=== PATIENT | female | born 1955 | race Caucasian/White ===

== ENCOUNTER 2019-07-09 17:13 | Inpatient (IN) | payer MEDICARE, OTHER ==
[~2019-07-09] VITALS: Ht 167.6 cm; Wt 135.7 kg
[2019-07-09] MEDS ORDERED: SODIUM CHLORIDE 0.9% 1,000 ML IVB ONE (17:35)
[2019-07-09] MEDS ORDERED: ONDANSETRON HCL 4 MG/2 ML VIAL IV ONE (17:45)
[2019-07-09 18:40] LABS: Basophils # (auto) 0 10 ^3/uL (0-0.2); Eosinophils # (auto) 0.1 10 ^3/uL (0-0.8); Hemoglobin 14.4 g/dL (12.2-16.2); Mean Corpuscular Hgb Conc. 32.4 g/dL (32.0-36.0); Monocytes # (auto) 0.7 10 ^3/uL (0-1.3)
[2019-07-09 18:41] LABS: Basophils % (auto) 0.4 % (0.0-2.0); Hematocrit 44.6 % (36.0-46.0); Lymphocytes # (auto) 0.6 10 ^3/uL (0.4-5.4); Lymphocytes % (auto) 5.4 % (10.0-50.0); Mean Corpuscular Hemoglobin 26.8 pg (28.0-32.0); Mean Corpuscular Volume 82.6 fL (80.0-100.0); Monocytes % (auto) 6.7 % (0.0-12.0); Neutrophils # (auto) 9.4 10 ^3/uL (1.6-8.6); Neutrophils % (auto) 86.5 % (37.0-80.0); Nucleated Red Blood Cells % 0.1 %; Platelet Count (auto) 137 10^3/uL (140-450); Red Cell Distribution Width 20.7 % (11.8-14.3); White Blood Cell 10.9 10^3/uL (4.4-10.8)
[2019-07-09 18:56] LABS: INR 1.03 (0.9-1.15); Partial Thromboplastin Time 29.1 sec (23.64-32.05)
[2019-07-09] MEDS ORDERED: metroNIDAZOLE 500MG/100ML 100 ML IV ONE (19:00)
[2019-07-09] MEDS ORDERED: PANTOPRAZOLE 40 MG/10 ML VIAL INJ IV ONE (19:00)
[2019-07-09] MEDS ORDERED: MORPHINE SULF INJ 2 MG/ML SYRINGE 1ML IV ONE (19:00)
[2019-07-09 19:04] LABS: Albumin 3.5 g/dL (3.4-5.0); BUN/Creatinine Ratio 21.6; Calcium 9.3 mg/dL (8.5-10.1); Magnesium 2.1 mg/dL (1.6-2.6); Potassium 4.2 mmol/L (3.5-5.1)
[2019-07-09 19:06] LABS: Bilirubin, Total 0.4 mg/dL (0.2-1.0); Total Protein 7.4 g/dL (6.4-8.2)
[2019-07-09] MEDS ORDERED: DEXTROSE (50%) 50ML SYRG IV PRN (20:45)
[2019-07-09] MEDS ORDERED: hydrALAZINE HCL 25 MG TAB PO PRN (20:45)
[2019-07-09] MEDS: ONDANSETRON HCL 4 MG/2 ML VIAL IV PRN (21:44)
[2019-07-09] MEDS: SODIUM CHLORIDE 0.9% 1,000 ML IV SCH (21:45)
[2019-07-09 22:07] VITALS: BP 129/61
[2019-07-09] MEDS: TOLTERODINE TARTRATE 1 MG TAB PO SCH (22:19)
--- NOTE | 2019-07-09 23:25 | NUR ---
Telemetry admit from ER JOSEOMAR admitted to Telemetry unit. Patient oriented to AMADOR DOTY RN primary RN, unit, room, bed, and unit policies regarding patient care and visiting hours. Patient now on continuous telemetry monitoring, tele box #74 and telemetry reading on arrival to unit is sinus bradycardia at 56. Patient placed on bedside oxygen, weighed by bed scale and encouraged to call if they need something. All questions and concerns addressed, patient verbalized understanding. Note: Wound pictures taken
[2019-07-09 23:30] VITALS: BP 157/89
[2019-07-10] MEDS: ACCU-CHEK COMFORT CURVE STRIP VI SCH ×4 (00:15→12:29)
[2019-07-10] MEDS: metroNIDAZOLE 500MG/100ML 100 ML IV SCH ×4 (00:15→18:38)
--- NOTE | 2019-07-10 01:27 | NUR ---
Patient experiencing bleeding of bright red blood with clots from rectum and nausea/dry heaving. Patient assisted into chair and full linen change performed. Patient cleansed and placed into clean gown. Transferred back into bed; patient tolerated well. Requesting medication for 7/10 abdominal pain and nausea. Will medicate according to orders.
[2019-07-10] MEDS: MORPHINE SULFATE 4 MG/ML SYR/VIAL IV PRN ×2 (01:37→06:04)
[2019-07-10] MEDS: ONDANSETRON HCL 4 MG/2 ML VIAL IV PRN ×3 (01:38→15:01)
[2019-07-10] MEDS ORDERED: OMEP20TA PO (01:50)
[2019-07-10] MEDS: InsuLIN REG 1unit/0.01ml Soln (100units/ml) SC SCH ×4 (04:00→12:00)
[2019-07-10 05:00] VITALS: BP 134/60
[2019-07-10 05:22] LABS: Basophils # (auto) 0 10 ^3/uL (0-0.2); Lymphocytes # (auto) 0.6 10 ^3/uL (0.4-5.4)
[2019-07-10 05:24] LABS: Basophils % (auto) 0.5 % (0.0-2.0); Eosinophils # (auto) 0.1 10 ^3/uL (0-0.8); Eosinophils % (auto) 1.3 % (0.0-7.0); Hematocrit 38.2 % (36.0-46.0); Hemoglobin 12.6 g/dL (12.2-16.2); Lymphocytes % (auto) 5.7 % (10.0-50.0); Mean Corpuscular Hgb Conc. 32.9 g/dL (32.0-36.0); Mean Corpuscular Volume 82.3 fL (80.0-100.0); Monocytes # (auto) 0.7 10 ^3/uL (0-1.3); Monocytes % (auto) 7.1 % (0.0-12.0); Neutrophils # (auto) 8.4 10 ^3/uL (1.6-8.6); Neutrophils % (auto) 85.4 % (37.0-80.0); Platelet Count (auto) 116 10^3/uL (140-450); Red Blood Cells 4.65 10^6/uL (4.0-5.20); White Blood Cell 9.9 10^3/uL (4.4-10.8)
[2019-07-10 05:34] LABS: Calcium 8.3 mg/dL (8.5-10.1); Potassium 3.6 mmol/L (3.5-5.1)
[2019-07-10 05:37] LABS: BUN/Creatinine Ratio 23.9
[2019-07-10 05:43] LABS: Red Cell Distribution Width 20.3 % (11.8-14.3)
[2019-07-10] MEDS: SODIUM CHLORIDE 0.9% 1,000 ML IV SCH ×2 (05:55→16:39)
--- NOTE | 2019-07-10 06:04 | NUR ---
PAIN Patient complains of pain to left lower abdomen, radiating to back. Medicated according to orders and heat pack provided. Will continue to monitor for improvement.
[2019-07-10] MEDS ORDERED: LEVOTHYROXINE SODIUM 25 MCG TAB PO SCH (07:00)
--- NOTE | 2019-07-10 08:34 | NUR ---
pt assessed for prn hhn tx. pt is on room air, spo2 97%, hr51, rr20. no s/s of respiratory distress noted. hhn tx not indicated. will continue to monitor.
[2019-07-10 09:00] VITALS: BP 123/65
[2019-07-10] MEDS ORDERED: ATORVASTATIN 20 MG TAB PO SCH (10:00)
[2019-07-10] MEDS: PANTOPRAZOLE 40 MG TAB PO SCH (10:06)
[2019-07-10] MEDS: TOLTERODINE TARTRATE 1 MG TAB PO SCH ×2 (10:06→21:10)
[2019-07-10] MEDS: ENALAPRIL MALEATE 10 MG TAB PO SCH (10:06)
[2019-07-10] MEDS ORDERED: GOLYTELY 4L KIT PO ONE (12:00)
[2019-07-10 13:00] VITALS: BP 145/67
[2019-07-10] MEDS ORDERED: LEVOTHYROXINE SODIUM 100 MCG/5 ML INJ IV ONE (13:30)
[2019-07-10] MEDS: MORPHINE SULF INJ 2 MG/ML SYRINGE 1ML IV PRN ×2 (15:10→23:00)
--- NOTE | 2019-07-10 15:11 | NUR ---
STATES ABDOMINAL PAIN 6/10 AND NAUSEA. MEDICATED WITH MORPHINE AND ZOFRAN.
[2019-07-10 16:40] VITALS: BP 115/66
[2019-07-10] MEDS: ATORVASTATIN 20 MG TAB PO SCH (21:11)
[2019-07-10] MEDS: ACETAMINOPHEN 325 MG TAB PO PRN (21:12)
[2019-07-10 21:17] VITALS: BP 133/78
[2019-07-10 22:47] LABS: Urine Amorphous Crystal FEW /hpf (None Seen); Urine Bacteria MANY /hpf (None Seen); Urine Blood 3+ /uL (Negative); Urine Mucus FEW (None Seen); Urine Specific Gravity 1.028 (1.001-1.035); Urine WBC 83 /hpf (0 - 5); Urine WBC Clumps PRESENT /hpf (None Seen)
--- NOTE | 2019-07-10 23:06 | NUR ---
Patient states she has Neck Pain 8/10 The patient requested Tylenol for the neck pain but after reassessment the pain remained 8/10. Patient now given morphine. Will reassess.
[2019-07-11] MEDS: metroNIDAZOLE 500MG/100ML 100 ML IV SCH ×4 (00:07→17:34)
[2019-07-11] MEDS: SODIUM CHLORIDE 0.9% 1,000 ML IV SCH ×2 (02:21→15:14)
[2019-07-11] MEDS: LEVOTHYROXINE SODIUM 100 MCG TAB PO SCH (05:27)
[2019-07-11 05:30] VITALS: BP 127/87
[2019-07-11] MEDS ORDERED: GOLYTELY 4L KIT PO ONE (06:00)
[2019-07-11 06:18] LABS: Basophils # (auto) 0.1 10 ^3/uL (0-0.2); Eosinophils # (auto) 0.4 10 ^3/uL (0-0.8); Hemoglobin 13.1 g/dL (12.2-16.2); Lymphocytes # (auto) 1.1 10 ^3/uL (0.4-5.4); Nucleated Red Blood Cells % 0.1 %
[2019-07-11 06:19] LABS: Basophils % (auto) 0.8 % (0.0-2.0); Eosinophils % (auto) 3.5 % (0.0-7.0); Hematocrit 40.1 % (36.0-46.0); Lymphocytes % (auto) 9.9 % (10.0-50.0); Mean Corpuscular Hgb Conc. 32.7 g/dL (32.0-36.0); Mean Corpuscular Volume 82.7 fL (80.0-100.0); Monocytes # (auto) 0.7 10 ^3/uL (0-1.3); Neutrophils % (auto) 79.8 % (37.0-80.0); Platelet Count (auto) 153 10^3/uL (140-450); Red Blood Cells 4.85 10^6/uL (4.0-5.20); White Blood Cell 11.2 10^3/uL (4.4-10.8)
[2019-07-11 06:28] LABS: Red Cell Distribution Width 20.2 % (11.8-14.3)
[2019-07-11 06:36] LABS: BUN/Creatinine Ratio 10.6; Calcium 8.4 mg/dL (8.5-10.1); Potassium 3.9 mmol/L (3.5-5.1)
--- NOTE | 2019-07-11 08:00 | NUR ---
Opening Shift Note Assumed care of patient, awake and alert. No S/S of distress/SOB or pain. Instructed on POC and to call for assist PRN, will continue to monitor for changes Q1hr and PRN. Side rails up x2. Call light placed near pt and within reach.
[2019-07-11] MEDS ORDERED: diphenhdrAMINE HCL 50 MG/1 ML VL ONE (08:26)
[2019-07-11] MEDS ORDERED: SODIUM CHLORIDE LOCK 10 ML ONE (08:26)
--- NOTE | 2019-07-11 08:33 | NUR ---
PT ASSESSED FOR PRN HHN TX. PT IS ON ROOM AIR, SPO2 95%, HR61, RR 18. NO S/S OF RESPIRATORY DISTRESS. HHN TX NOT INDICATED AT THIS TIME. WILL CONTINUE TO MONITOR.
[2019-07-11 09:00] VITALS: BP 120/55
--- NOTE | 2019-07-11 09:15 | NUR ---
Pt taken down to Preop for Colonoscopy at 0905.
[2019-07-11] MEDS: MIDAZOLAM HCL 5 MG/ML-1ML VIAL ONE ×3 (09:25→09:37)
[2019-07-11] MEDS: fentaNYL CITRATE 100 MCG/2 ML VL ONE ×3 (09:25→09:37)
[2019-07-11] MEDS ORDERED: ASPirin 81 mg TAB PO SCH (10:00)
--- NOTE | 2019-07-11 11:20 | NUR ---
PT WAS BROUGHT UP BY RECOVERY NURSE AT 10:40. VITAL SIGNS 134/66, HR 49, RR 16, TEMP 98.1.
[2019-07-11] MEDS: TOLTERODINE TARTRATE 1 MG TAB PO SCH ×2 (12:03→21:36)
[2019-07-11] MEDS: ENALAPRIL MALEATE 10 MG TAB PO SCH (12:04)
[2019-07-11] MEDS: PANTOPRAZOLE 40 MG TAB PO SCH (12:04)
[2019-07-11] MEDS: CEFTRIAXONE SODIUM 2 GM in D5W 5% 50 ML IV SCH (12:09)
[2019-07-11 13:00] VITALS: BP 111/56
[2019-07-11] MEDS ORDERED: LEVOTHYROXINE SODIUM 100 MCG/5 ML INJ IV ONE (13:30)
--- NOTE | 2019-07-11 15:53 | NUR ---
DR. MAKI AT PT BEDSIDE. DISCUSSED PLAN OF CARE WITH PT.
[2019-07-11 16:35] VITALS: BP 153/65
[2019-07-11] MEDS: MORPHINE SULF INJ 2 MG/ML SYRINGE 1ML IV PRN (18:08)
--- NOTE | 2019-07-11 18:13 | NUR ---
PT REPORTED 9/10 PAIN ON HER RT ABDOMEN. ADMINISTERED 2 MG MORPHINE. PT TOLERATED WELL AND RESTING.
--- NOTE | 2019-07-11 20:15 | NUR ---
Report received from Russ CORREA. Patient has no S/S of SOB/distress or pain. Patient is on room air. Respirations even and unlabored. Will continue to monitor Q1 hour and PRN.
[2019-07-11] MEDS: IPRATROPIUM BROM 0.5 MG/2.5ML INH SOL NEB PRN (21:19)
[2019-07-11] MEDS: ALBUTEROL SULF 2.5 MG/0.5ML(0.5%) NEB SOLN NEB PRN (21:19)
--- NOTE | 2019-07-11 21:20 | NUR ---
Patient reports chest tightness and requests breathing treatment. Patient's oxygen saturation on room air is 88%. Patient placed on 3 liters of oxygen via nasal cannula and pulse oximeter reading is 95%. Patient states she feels better with oxygen. Respiratory therapy paged for PRN breathing treatment.
[2019-07-11] MEDS: ATORVASTATIN 20 MG TAB PO SCH (21:36)
[2019-07-11 22:00] VITALS: BP 108/65
--- NOTE | 2019-07-11 23:20 | NUR ---
IV removal due to leakage and bleeding IV DC'd with clean sterile technique, catheter fully intact. Pressure dressing applied to site. Patient tolerated well.
--- NOTE | 2019-07-12 | NUR ---
IV insertion IV access obtained, via clean sterile technique by inserting 22 gauge catheter at left wrist after 1 attempt by Cary CORREA. IV secured properly. No trauma to site. Patient tolerated well.
--- NOTE | 2019-07-12 00:01 | NUR ---
Hospitalist paged regarding patient requesting medication for restless leg syndrome. Awaiting callback at this time.
[2019-07-12] MEDS: metroNIDAZOLE 500MG/100ML 100 ML IV SCH ×3 (00:07→12:27)
[2019-07-12] MEDS: MORPHINE SULF INJ 2 MG/ML SYRINGE 1ML IV PRN ×3 (00:16→20:46)
--- NOTE | 2019-07-12 00:28 | NUR ---
CARLOS Moore, called back regarding patient requesting medication for restless leg syndrome. New order received.
[2019-07-12] MEDS ORDERED: TEMAZEPAM 15 MG CAP PO PRN (00:45)
--- NOTE | 2019-07-12 02:50 | NUR ---
Patient reports chest tightness and requests breathing treatment. Patient found with nasal cannula off. Patient placed on 3 liters of oxygen via nasal cannula. Patient's oxygen saturation with 3 liters of oxygen via nasal cannula is 94%. Respiratory therapy paged for PRN breathing treatment.
[2019-07-12] MEDS: IPRATROPIUM BROM 0.5 MG/2.5ML INH SOL NEB PRN ×2 (03:02→19:48)
[2019-07-12] MEDS: ALBUTEROL SULF 2.5 MG/0.5ML(0.5%) NEB SOLN NEB PRN ×2 (03:02→19:48)
[2019-07-12 05:00] VITALS: BP 110/72
[2019-07-12 05:44] LABS: Basophils # (auto) 0.1 10 ^3/uL (0-0.2); Basophils % (auto) 0.9 % (0.0-2.0); Eosinophils # (auto) 0.3 10 ^3/uL (0-0.8); Hematocrit 36.5 % (36.0-46.0); Lymphocytes # (auto) 0.8 10 ^3/uL (0.4-5.4); Lymphocytes % (auto) 11.3 % (10.0-50.0); Mean Corpuscular Hemoglobin 27.3 pg (28.0-32.0); Mean Corpuscular Hgb Conc. 32.8 g/dL (32.0-36.0); Mean Corpuscular Volume 83.2 fL (80.0-100.0); Monocytes # (auto) 0.6 10 ^3/uL (0-1.3); Monocytes % (auto) 8.1 % (0.0-12.0); Neutrophils # (auto) 5.1 10 ^3/uL (1.6-8.6); Neutrophils % (auto) 74.7 % (37.0-80.0); Nucleated Red Blood Cells % 0.1 %; Platelet Count (auto) 119 10^3/uL (140-450); Red Blood Cells 4.39 10^6/uL (4.0-5.20); White Blood Cell 6.9 10^3/uL (4.4-10.8)
[2019-07-12 05:59] LABS: Red Cell Distribution Width 20.8 % (11.8-14.3)
[2019-07-12 06:04] LABS: Potassium 3.6 mmol/L (3.5-5.1)
[2019-07-12 06:10] LABS: BUN/Creatinine Ratio 12.1; Calcium 7.9 mg/dL (8.5-10.1)
[2019-07-12] MEDS: SODIUM CHLORIDE 0.9% 1,000 ML IV SCH (06:24)
[2019-07-12] MEDS: LEVOTHYROXINE SODIUM 100 MCG TAB PO SCH (06:24)
--- NOTE | 2019-07-12 07:00 | NUR ---
CLOSING NOTE Patient has no S/S of SOB/distress or pain. Patient is on 3 liters of oxygen via nasal cannula. Respirations even and unlabored.
--- NOTE | 2019-07-12 08:00 | NUR ---
Opening Shift Note Assumed care of patient, awake and alert. No S/S of distress/SOB or pain. Instructed on POC and to call for assist PRN, will continue to monitor for changes Q1hr and PRN.
[2019-07-12 08:28] VITALS: BP 131/64
[2019-07-12] MEDS: TOLTERODINE TARTRATE 1 MG TAB PO SCH ×2 (09:44→20:48)
[2019-07-12] MEDS: ENALAPRIL MALEATE 10 MG TAB PO SCH (09:45)
[2019-07-12] MEDS: PANTOPRAZOLE 40 MG TAB PO SCH (09:45)
[2019-07-12] MEDS: CEFTRIAXONE SODIUM 2 GM in D5W 5% 50 ML IV SCH (09:45)
[2019-07-12 12:29] VITALS: BP 134/65
--- NOTE | 2019-07-12 12:50 | NUR ---
DR. MAKI AT BEDSIDE TO SEE PT. DOCTOR INFORMED THAT PT IS REQUESTING MEDICATION FOR RESTLESS LEG SYNDROME.
[2019-07-12] MEDS ORDERED: LEVOTHYROXINE SODIUM 100 MCG/5 ML INJ IV ONE (13:00)
--- NOTE | 2019-07-12 13:43 | NUR ---
Nutrition Assessment Notes Please refer to link for full assessment notes. Est energy needs: 5256-5050 kcals (12-15 kcal/kgBW) Est protein needs: 79-87 gms/day (1.0-1.1 gm/kgBW) Will continue to monitor and reassess prn. Addendum: 07/12/19 at [address] Amended: Links added.
--- NOTE | 2019-07-12 14:05 | NUR ---
RT NOTE: NO TX INDICATED AT THIS TIME. NO SIGNS OF RESPIRATORY DISTRESS. LUNG SOUNDS CLEAR/DIMINISHED. ON RA SPO2 96 HR 70 RR 18. PT AWARE TO CALL FOR RESPIRATORY IF NEED FOR TX ARISES. WILL CONTINUE TO MONITOR.
[2019-07-12] MEDS: metroNIDAZOLE 500 MG TAB PO SCH ×2 (14:53→20:47)
[2019-07-12 16:28] VITALS: BP 138/82
[2019-07-12] MEDS: ACETAMINOPHEN 325 MG TAB PO PRN (16:34)
--- NOTE | 2019-07-12 16:37 | NUR ---
Pt reported rt abdominal pain 5-10/19, pt offered pain medication, pt requested tylenol at this time, pt wants to wait for later to receive the morphine. Will continue to monitor pt.
[2019-07-12 17:57] VITALS: BP 138/82
--- NOTE | 2019-07-12 20:29 | NUR ---
Opening Shift Note Assumed care of patient, awake and alert. No S/S of distress/SOB or pain. patient had a small loose bowel movement. Instructed on POC and to call for assist PRN, will continue to monitor for changes Q1hr and PRN.
[2019-07-12] MEDS: PRAMIPEXOLE DIHYDROCHLORIDE MO 0.25 MG TAB PO SCH (20:47)
[2019-07-12] MEDS: ATORVASTATIN 20 MG TAB PO SCH (20:48)
--- NOTE | 2019-07-12 20:50 | NUR ---
PAIN PATIENT C/O 7/10 ABDOMINAL AND BLE PAIN REQUESTING PAIN MEDICATION. ADMINSITERED MORPHINE 2MG IV PRESCRIBED. PATIENT TOLERATED WELL. WILL CONTINUE TO MONITOR PATIENT.
[2019-07-12 21:53] VITALS: BP 136/70
[2019-07-13 05:00] VITALS: BP 143/67
[2019-07-13] MEDS: metroNIDAZOLE 500 MG TAB PO SCH ×3 (06:04→21:20)
[2019-07-13] MEDS: LEVOTHYROXINE SODIUM 100 MCG TAB PO SCH (06:04)
--- NOTE | 2019-07-13 06:42 | NUR ---
PATIENT RESTING IN BED COMFORTABLY ON O2 3LNC. PATIENT IN NO APPARENT CARDIAC OR PULMONARY DISTRESS. PATIENT HAS NO COMPLAINTS OF PAIN OR ANY DISCOMFORT. WILL CONTINUE TO MONITOR PATIENT.
--- NOTE | 2019-07-13 07:30 | NUR ---
Opening Shift Note Assuming care of patient at this time. Patient is awake and alert. Patient denies pain. Patient shows no signs or symptoms of distress or shortness of breath. Bed is locked and lowered with side rails up x2. Instructed patient on the plan of care for today and to call for assistance as needed. Call light within reach.
[2019-07-13 09:00] VITALS: BP 152/72
[2019-07-13] MEDS: ENALAPRIL MALEATE 10 MG TAB PO SCH (10:24)
[2019-07-13] MEDS: TOLTERODINE TARTRATE 1 MG TAB PO SCH ×2 (10:24→21:20)
[2019-07-13] MEDS: PANTOPRAZOLE 40 MG TAB PO SCH (10:25)
[2019-07-13] MEDS: CEFTRIAXONE SODIUM 2 GM in D5W 5% 50 ML IV SCH (10:26)
[2019-07-13 13:00] VITALS: BP 139/79
[2019-07-13] MEDS: ACETAMINOPHEN 325 MG TAB PO PRN (14:50)
--- NOTE | 2019-07-13 14:50 | NUR ---
Pain Patient is complaining of headache, pain is 8/10. Patient is requesting to be given Tylenol despite recommended pain scale orders. Will administer Tylenol as ordered.
[2019-07-13] MEDS ORDERED: LEVOTHYROXINE SODIUM 100 MCG/5 ML INJ IV ONE (15:15)
--- NOTE | 2019-07-13 16:07 | NUR ---
Pain reassessment After administration of Tylenol, patient states that pain has been relieved. Pain is currently rated at 2/10.
[2019-07-13 16:37] VITALS: BP 136/65
--- NOTE | 2019-07-13 19:02 | NUR ---
Closing Shift Note Patient resting in bed. No distress noted. Will give report and endorse care to the retail shift supervisor RN.
[2019-07-13] MEDS: ATORVASTATIN 20 MG TAB PO SCH (21:19)
[2019-07-13] MEDS: PRAMIPEXOLE DIHYDROCHLORIDE MO 0.25 MG TAB PO SCH (21:20)
[2019-07-13 22:00] VITALS: BP 143/71
[2019-07-13] MEDS: IPRATROPIUM BROM 0.5 MG/2.5ML INH SOL NEB PRN (23:50)
[2019-07-13] MEDS: ALBUTEROL SULF 2.5 MG/0.5ML(0.5%) NEB SOLN NEB PRN (23:50)
[2019-07-14] MEDS: MORPHINE SULF INJ 2 MG/ML SYRINGE 1ML IV PRN ×2 (00:08→04:26)
[2019-07-14 04:58] VITALS: BP 148/69
[2019-07-14] MEDS: metroNIDAZOLE 500 MG TAB PO SCH ×2 (06:11→14:00)
[2019-07-14] MEDS ORDERED: LEVOTHYROXINE SODIUM 100 MCG TAB PO SCH (07:00)
[2019-07-14 08:58] VITALS: BP 153/67
[2019-07-14] MEDS: TOLTERODINE TARTRATE 1 MG TAB PO SCH (09:16)
[2019-07-14] MEDS: PANTOPRAZOLE 40 MG TAB PO SCH (09:16)
[2019-07-14] MEDS: ENALAPRIL MALEATE 10 MG TAB PO SCH (09:18)
[2019-07-14] MEDS: CEFTRIAXONE SODIUM 2 GM in D5W 5% 50 ML IV SCH (09:19)
[2019-07-14 13:00] VITALS: BP 149/78
--- NOTE | 2019-07-14 14:44 | NUR ---
Discharge instructions given as ordered. Encourage to follow up with PMD as instructed. All questions and concerns addressed. Patient verbalized understanding. Medication reconciliation form completed and copy given to patient. No home medications held in Pharmacy and none returned to patient, and no needed vaccines given. IV removed with catheter intact, pressure dressing applied. Telemetry unit returned to ICU. Patient taken to vehicle via wheelchair with all personal belongings, accompanied by staff. Family member at front entrance waiting to vegetable picker patient. No distress noted at time of departure.
== END 2019-07-14 14:44 | disposition home or self-care (01) | DRG 391 ==
LOC: ER 17:13 → EDBD 17:13 → TELE 17:14 → TELE-WESTW 23:15
PROVIDERS: ADMIT Hospitalist; ATTEND Family Medicine
PROC: 0DBL8ZX Excision of Transverse Colon, Via Natural or Artificial Opening Endoscopic, Diagnostic (ICD-10-PCS; 2019-07-11)
PROC: 0DBM8ZX Excision of Descending Colon, Via Natural or Artificial Opening Endoscopic, Diagnostic (ICD-10-PCS; principal; 2019-07-11 09:22)
DX: A09 Infectious gastroenteritis and colitis, unspecified (principal); K57.31 Diverticulosis of large intestine without perforation or abscess with bleeding; I31.3 Pericardial effusion (noninflammatory); Z68.42 Body mass index [BMI] 45.0-49.9, adult; E03.9 Hypothyroidism, unspecified; D69.6 Thrombocytopenia, unspecified; I10 Essential (primary) hypertension; K64.8 Other hemorrhoids; E78.5 Hyperlipidemia, unspecified; I48.91 Unspecified atrial fibrillation; J45.909 Unspecified asthma, uncomplicated; R73.9 Hyperglycemia, unspecified; E66.01 Morbid (severe) obesity due to excess calories; K21.9 Gastro-esophageal reflux disease without esophagitis; Z88.5 Allergy status to narcotic agent; Z88.1 Allergy status to other antibiotic agents; Z88.6 Allergy status to analgesic agent; Z88.8 Allergy status to other drugs, medicaments and biological substances; Z79.899 Other long term (current) drug therapy
CPT/HCPCS: 36415; 45380; 71045; 74176; 80048; 80053; 81001; 82962; 83036; 83690; 83735; 84443; 85025; 85610; 85730; 86850; 86900; 86901; 87045; 87427; 93306; 94640; 96361; 96365; 96375; 97163; C9113; G0378; J0696; J2250; J2405; J3490; J7060